=== PATIENT | female | born 1955 | race African-American/Black ===

== ENCOUNTER 2019-12-25 15:49 | Inpatient (IN) | payer OTHER, MEDICAID ==
[~2019-12-25] VITALS: Ht 162.6 cm; Wt 101.9 kg
[2019-12-25 17:10] LABS: MEAN CORPUSCULAR HEMOGLOBIN 24.6 pg (28.0-32.0); MEAN CORPUSCULAR VOLUME 83.8 fL (81.0-99.0); MEAN PLATELET VOLUME 8.5 fl (7.4-10.4); PLATELET 348 x1000/uL (130-400); RED BLOOD CELL COUNT 1.78 mill/uL (4.2-5.4); RED CELL DISTRIBUTION WIDTH 22.1 % (11.6-14.6)
[2019-12-25 17:13] LABS: HEMATOCRIT. 14.9 % (36.0-48.0); HEMOGLOBIN. 4.4 g/dL (12.0-16.0)
[2019-12-25 17:17] LABS: CHLORIDE 119 mEq/L (98-107)
[2019-12-25 17:21] LABS: ETHANOL BLOOD < 10 mg/dL
[2019-12-25 17:25] LABS: CREATINE KINASE 190 IU/L (26-192)
[2019-12-25 18:32] LABS: NUCLEATED RED BLOOD CELLS 2 /100 WBC; PLATELET ESTIMATE NORMAL
[2019-12-25 20:55] LABS: CLARITY URINE CLOUDY (CLEAR); COLOR URINE YELLOW (YELLOW); KETONES URINE NEGATIVE (NEGATIVE); LEUKOCYTE ESTERASE URINE NEGATIVE (NEGATIVE); NITRITE URINE NEGATIVE (NEGATIVE); OCCULT BLOOD URINE 1+ (NEGATIVE); PROTEIN URINE 3+ (NEGATIVE); SPECIFIC GRAVITY URINE 1.014 (1.005-1.030)
[2019-12-25] MEDS ORDERED: SODIUM CHLORIDE 0.9% 1,000 ML IV SCH (21:07)
[2019-12-25 21:09] LABS: *AMPHETAMINES SCREEN URINE NEGATIVE (NEGATIVE); *BARBITURATES SCREEN URINE NEGATIVE (NEGATIVE); *BENZODIAZEPINES SCREEN URINE NEGATIVE (NEGATIVE); *COCAINE SCREEN URINE NEGATIVE (NEGATIVE)
[2019-12-25 21:10] LABS: METHADONE URINE SCREEN NEGATIVE (NEGATIVE); OPIATES URINE SCREEN NEGATIVE (NEGATIVE)
[2019-12-25 21:11] LABS: CANNABINOID URINE SCREEN NEGATIVE (NEGATIVE); PHENCYCLIDINE URINE SCREEN NEGATIVE (NEGATIVE)
[2019-12-25] MEDS ORDERED: IPRATROPIUM/ALBUTEROL 0.5-3(2.5)MG/3ML NEB NEB PRN (21:15)
[2019-12-25] MEDS ORDERED: ACETAMINOPHEN 325MG TABLET PO PRN ×3 (21:15→23:00)
[2019-12-25] MEDS ORDERED: HYDRALAZINE 20MG/ML VIAL IV PRN (21:15)
[2019-12-25] MEDS ORDERED: ONDANSETRON HCL 4MG/2ML INJ IV PRN (21:15)
[2019-12-25] MEDS ORDERED: MEROPENEM 1,000 MG in SODIUM CHLORIDE 0.9% 100 ML IV SCH ×3 (21:30→23:00)
[2019-12-25] MEDS ORDERED: FUROSEMIDE 40MG/4ML VIAL IVP SCH (21:30)
[2019-12-25 21:42] LABS: BG BASE EXCESS -5.8 mmol/L (-2.0-2.0); BG CARBOXYHEMOGLOBIN 0.6 % (0.5-1.5); BG DEOXYHEMOGLOBIN 10.9 % (0.0-5.0); BG FRACTION INSPIRED OXYGEN 21; BG METHEMOGLOBIN 0.3 % (0.0-1.5); BG OXYHEMOGLOBIN 88.2 % (94.0-97.0); BG PCO2 26.7 mmHg (35.0-45.0); BG PH 7.446 (7.350-7.450); BG PO2 62.1 mmHg (75.0-100.0); BG SAMPLE SITE RIGHT RADIAL; BG TOTAL HEMOGLOBIN 4.6 g/dL (12.0-18.0); BG VENT MODE ROOM AIR
[2019-12-26] VITALS (29 sets, daily range): BP systolic 105–191; BP diastolic 40–118
[2019-12-26] MEDS ORDERED: MEROPENEM 1,000 MG in SODIUM CHLORIDE 0.9% 100 ML IV SCH (05:00)
[2019-12-26] MEDS ORDERED: VANCOMYCIN 2,000 MG in DEXT 5% WATER 500 ML IV SCH (09:00)
[2019-12-26] MEDS ORDERED: NEO/3.5O EACHEYE (09:35)
[2019-12-26] MEDS ORDERED: HYDR12.54 MT (09:35)
[2019-12-26] MEDS ORDERED: CARB30DR OP (09:35)
[2019-12-26] MEDS ORDERED: FOLI0.8T27 PO (09:35)
[2019-12-26] MEDS ORDERED: CALC0.253 PO (09:35)
[2019-12-26] MEDS ORDERED: ROSU20TA2 PO (09:35)
[2019-12-26] MEDS ORDERED: HYDROCHLOROTHIAZIDE PO (09:35)
[2019-12-26] MEDS ORDERED: METF-416 PO (09:35)
[2019-12-26] MEDS ORDERED: VERA240C3 PO (09:35)
[2019-12-26] MEDS ORDERED: CLON0.3T PO (09:35)
[2019-12-26] MEDS ORDERED: NYST15PO4 TP (09:35)
[2019-12-26] MEDS ORDERED: LANTUS SUBCUT ×2 (09:35)
[2019-12-26] MEDS ORDERED: VENL150C52 PO (09:35)
[2019-12-26] MEDS ORDERED: ISOS30TA6 PO (09:35)
[2019-12-26] MEDS ORDERED: ASPI-1158 PO (09:35)
[2019-12-26] MEDS ORDERED: GLIP10TA10 PO (09:35)
[2019-12-26] MEDS ORDERED: NASA BOTHNSTRLS (09:35)
[2019-12-26] MEDS ORDERED: DEXTROSE 50% WATER 50ML SYRINGE IV PRN (10:15)
[2019-12-26] MEDS ORDERED: ACETAMINOPHEN 325MG TABLET PO PRN (11:00)
[2019-12-26] MEDS: BLOOD SUGAR DIAGNOSTIC STRIP TEST SCH ×3 (11:01→21:40)
[2019-12-26 11:41] LABS: BASOPHILS % 0.5 % (0.0-2.0); EOSINOPHILS % 0.1 % (0.0-5.0); HEMATOCRIT. 22.5 % (36.0-48.0); LYMPHOCYTES % 7.9 % (20.0-50.0); MEAN CORPUSCULAR HEMOGLOBIN 25.6 pg (28.0-32.0); MEAN CORPUSCULAR VOLUME 82.5 fL (81.0-99.0); MONOCYTES % 9.6 % (2.0-8.0); NEUTROPHILS % 81.9 % (40.0-76.0); PLATELET 294 x1000/uL (130-400); RED BLOOD CELL COUNT 2.72 mill/uL (4.2-5.4)
[2019-12-26 11:44] LABS: INR 1.2; PROTHROMBIN TIME 11.9 sec (9.6-11.0)
[2019-12-26] MEDS: INSULIN LISPRO 100 UNITS/ML SUBCUT SCH ×3 (11:58→21:42)
[2019-12-26] MEDS: MEROPENEM 1000MG in NORMAL SALINE 100ML IV SCH ×2 (12:39→21:40)
[2019-12-26 12:41] LABS: TOTAL IRON BINDING CAPACITY 243 ug/dL (250-450)
[2019-12-26 12:52] LABS: FERRITIN 78 ng/mL (10-291)
[2019-12-26 13:48] LABS: FOLIC ACID (FOLATE) SERUM >20 ng/mL ng/mL (>5.38)
[2019-12-26 13:59] LABS: VITAMIN B12 SERUM 1193 pg/mL (211-911)
[2019-12-26] MEDS: HYDRALAZINE 20MG/ML VIAL IV PRN ×2 (15:43→23:08)
[2019-12-26] MEDS: FERROUS SULFATE 325MG TABLET PO SCH (17:00)
[2019-12-26] MEDS: FUROSEMIDE 40MG/4ML VIAL IVP SCH (17:58)
[2019-12-26] MEDS ORDERED: EPOETIN ALFA 4000UNITS/ML VIAL SUBCUT SCH (21:00)
[2019-12-26] MEDS: CLONIDINE 0.2MG TABLET PO SCH (21:40)
[2019-12-26 21:54] LABS: HEMATOCRIT 24.9 % (36.0-48.0); HEMOGLOBIN 7.8 g/dL (12.0-16.0)
[2019-12-27] VITALS (54 sets, daily range): BP systolic 62–189; BP diastolic 24–112
[2019-12-27] MEDS: HYDRALAZINE 20MG/ML VIAL IV PRN ×2 (05:15→12:05)
[2019-12-27 05:55] LABS: CHLORIDE 122 mEq/L (98-107)
[2019-12-27 05:56] LABS: HEMATOCRIT. 21.5 % (36.0-48.0); MEAN CORPUSCULAR HEMOGLOBIN 26.4 pg (28.0-32.0); MEAN CORPUSCULAR VOLUME 82.3 fL (81.0-99.0); MEAN PLATELET VOLUME 8.8 fl (7.4-10.4); PLATELET 195 x1000/uL (130-400); RED BLOOD CELL COUNT 2.62 mill/uL (4.2-5.4); RED CELL DISTRIBUTION WIDTH 17.9 % (11.6-14.6)
[2019-12-27 06:08] LABS: PHOSPHORUS 4.7 mg/dL (2.5-4.9)
[2019-12-27 06:09] LABS: HAPTOGLOBIN 49 mg/dL (30-200)
[2019-12-27] MEDS: CLONIDINE 0.2MG TABLET PO SCH ×3 (06:35→22:17)
[2019-12-27] MEDS: INSULIN LISPRO 100 UNITS/ML SUBCUT SCH ×4 (06:35→22:31)
[2019-12-27] MEDS: BLOOD SUGAR DIAGNOSTIC STRIP TEST SCH ×4 (06:35→21:00)
[2019-12-27] MEDS: FERROUS SULFATE 325MG TABLET PO SCH ×3 (06:35→17:28)
[2019-12-27 07:05] LABS: HEMOGLOBIN. 6.9 g/dL (12.0-16.0)
[2019-12-27 08:01] LABS: NUCLEATED RED BLOOD CELLS 2 /100 WBC; PLATELET ESTIMATE NORMAL
[2019-12-27] MEDS: MEROPENEM 1000MG in NORMAL SALINE 100ML IV SCH (08:26)
[2019-12-27] MEDS: FUROSEMIDE 40MG/4ML VIAL IVP SCH (08:26)
[2019-12-27] MEDS: NIFEDIPINE XL 60MG TAB PO SCH (09:59)
[2019-12-27] MEDS ORDERED: POTASSIUM CHLORIDE INJ 40 MEQ in DEXT 5% WATER 250 ML IV SCH (10:00)
[2019-12-27] MEDS ORDERED: MAGNESIUM 4 G PREMIX 100 ML IV SCH (10:30)
[2019-12-27] MEDS ORDERED: VANCOMYCIN 1 G PREMIX 200 ML IV SCH (12:00)
[2019-12-27] MEDS: DOCUSATE SODIUM 250MG CAPSULE PO SCH (14:26)
[2019-12-27] MEDS ORDERED: SORBITOL 70% SOLN 30ML PO SCH ×2 (16:00→20:00)
[2019-12-27 16:06] LABS: HEMATOCRIT 27.6 % (36.0-48.0); HEMOGLOBIN 8.9 g/dL (12.0-16.0)
[2019-12-27 18:09] LABS: T4 FREE 1.23 ng/dL (0.76-1.46)
[2019-12-27] MEDS: CEFTRIAXONE 1 G PREMIX 50 ML IV SCH (22:17)
[2019-12-27] MEDS: PANTOPRAZOLE SODIUM 40 MG/VIAL IV SCH (22:17)
[2019-12-27] MEDS: METRONIDAZOLE 500 MG PREMIX 100 ML IV SCH (22:20)
[2019-12-28] VITALS (44 sets, daily range): BP systolic 86–196; BP diastolic 39–129
[2019-12-28 05:26] LABS: HEMATOCRIT. 30.7 % (36.0-48.0); HEMOGLOBIN. 9.7 g/dL (12.0-16.0); MEAN CORPUSCULAR HEMOGLOBIN 26.4 pg (28.0-32.0); MEAN CORPUSCULAR VOLUME 83.3 fL (81.0-99.0); MEAN PLATELET VOLUME 8.9 fl (7.4-10.4); PLATELET 214 x1000/uL (130-400); RED BLOOD CELL COUNT 3.68 mill/uL (4.2-5.4); RED CELL DISTRIBUTION WIDTH 17.4 % (11.6-14.6)
[2019-12-28 05:33] LABS: PARTIAL THROMBOPLASTIN TIME 22.7 sec (23.4-31.0); PROTHROMBIN TIME 10.7 sec (9.6-11.0)
[2019-12-28 05:35] LABS: PHOSPHORUS 3.4 mg/dL (2.5-4.9)
[2019-12-28] MEDS: CLONIDINE 0.2MG TABLET PO SCH ×3 (05:54→22:40)
[2019-12-28] MEDS: BLOOD SUGAR DIAGNOSTIC STRIP TEST SCH ×4 (05:55→20:36)
[2019-12-28] MEDS: INSULIN LISPRO 100 UNITS/ML SUBCUT SCH ×4 (05:55→20:44)
[2019-12-28 06:23] LABS: HEPATITIS B SURFACE ANTIGEN NEGATIVE
[2019-12-28 06:52] LABS: HEPATITIS A AB IGM NEGATIVE (NEGATIVE)
[2019-12-28] MEDS: DOCUSATE SODIUM 250MG CAPSULE PO SCH (08:14)
[2019-12-28] MEDS: PANTOPRAZOLE SODIUM 40 MG/VIAL IV SCH ×2 (08:14→20:44)
[2019-12-28] MEDS: FERROUS SULFATE 325MG TABLET PO SCH ×3 (08:14→17:00)
[2019-12-28] MEDS: NIFEDIPINE XL 60MG TAB PO SCH (08:14)
[2019-12-28] MEDS: METRONIDAZOLE 500 MG PREMIX 100 ML IV SCH ×2 (08:15→21:07)
[2019-12-28] MEDS ORDERED: FUROSEMIDE 20MG/2ML VIAL IVP SCH (09:00)
[2019-12-28 11:01] LABS: NUCLEATED RED BLOOD CELLS 1 /100 WBC
[2019-12-28 11:02] LABS: PLATELET ESTIMATE NORMAL
[2019-12-28] MEDS ORDERED: SIMETHICONE 40 MG/0.6 ML 30ML ONE ×2 (13:55→15:48)
[2019-12-28] MEDS ORDERED: BACTERIOSTATIC SODIUM CHLORIDE 0.9% 30ML VIAL IJ ONE (13:55)
[2019-12-28] MEDS ORDERED: MIDAZOLAM HCL 5 MG/5 ML VIAL ONE (15:48)
[2019-12-28] MEDS ORDERED: FENTANYL CITRATE/PF 50MCG/ML 2ML VIAL ONE (15:48)
[2019-12-28] MEDS ORDERED: MIDAZOLAM HCL 5 MG/5 ML VIAL IV PRN (15:58)
[2019-12-28] MEDS ORDERED: FENTANYL CITRATE/PF 50MCG/ML 2ML VIAL IV PRN (15:59)
[2019-12-28] MEDS: CEFTRIAXONE 1 G PREMIX 50 ML IV SCH (20:43)
[2019-12-28] MEDS: HYDRALAZINE 20MG/ML VIAL IV PRN (21:48)
[2019-12-28] MEDS: DIPHENHYDRAMINE 50MG/ML VIAL IV PRN (23:40)
[2019-12-29] VITALS (14 sets, daily range): BP systolic 120–157; BP diastolic 46–87
[2019-12-29] MEDS: CLONIDINE 0.2MG TABLET PO SCH ×3 (05:23→21:06)
[2019-12-29 07:28] LABS: PHOSPHORUS 3.6 mg/dL (2.5-4.9)
[2019-12-29] MEDS: BLOOD SUGAR DIAGNOSTIC STRIP TEST SCH ×4 (07:55→20:23)
[2019-12-29] MEDS: FERROUS SULFATE 325MG TABLET PO SCH ×3 (08:26→18:18)
[2019-12-29] MEDS: INSULIN LISPRO 100 UNITS/ML SUBCUT SCH ×4 (08:26→20:39)
[2019-12-29] MEDS: NIFEDIPINE XL 60MG TAB PO SCH (09:26)
[2019-12-29] MEDS: DOCUSATE SODIUM 250MG CAPSULE PO SCH (09:26)
[2019-12-29] MEDS: METRONIDAZOLE 500 MG PREMIX 100 ML IV SCH ×2 (10:29→20:59)
[2019-12-29 13:15] LABS: BASOPHILS % 0.7 % (0.0-2.0); EOSINOPHILS % 4.1 % (0.0-5.0); HEMATOCRIT. 30.6 % (36.0-48.0); HEMOGLOBIN. 9.8 g/dL (12.0-16.0); LYMPHOCYTES % 7.9 % (20.0-50.0); MEAN CORPUSCULAR HEMOGLOBIN 26.5 pg (28.0-32.0); MEAN CORPUSCULAR VOLUME 82.8 fL (81.0-99.0); MONOCYTES % 14.3 % (2.0-8.0); PLATELET 196 x1000/uL (130-400); RED CELL DISTRIBUTION WIDTH 17.4 % (11.6-14.6)
[2019-12-29] MEDS: CEFTRIAXONE 1 G PREMIX 50 ML IV SCH (20:08)
[2019-12-29] MEDS ORDERED: HYDROCODONE/ACETAMINOPHEN 5/325MG TABLET PO ONE (22:30)
[2019-12-29] MEDS ORDERED: TRAMADOL 50MG TABLET PO SCH (22:45)
[2019-12-29] MEDS: DIPHENHYDRAMINE 50MG/ML VIAL IV PRN (22:49)
[2019-12-30] VITALS: BP 155/71
[2019-12-30 00:48] VITALS: BP 155/71
== END 2019-12-30 01:00 | disposition short-term general hospital (02) | DRG 871 ==
LOC: ER 15:49 → UNDOADMIN 19:14 → MICUSO 19:14 → 8WST 19:14 → EDBEDREQTM 19:17 → EDBEDREQ 19:17 → CANRESERV 19:52 → ENRESERV 19:52 → 8WST 21:06 → EDBEDREQ 21:21 → 8WST 22:10 → UNDODISIN 22:15 → CANRESERV 12-26 01:21 → ENRESERV 12-26 01:21 → UNDODISIN 12-26 04:46 → ENRESERV 12-26 06:17 → MICUSO 12-26 06:51 → 8WST 12-26 06:51 → ENRESERV 12-26 08:05 → 5EST 12-28 23:07
PROVIDERS: ADMIT Internal Medicine; ATTEND Internal Medicine
PROC: 30233N1 Transfusion of Nonautologous Red Blood Cells into Peripheral Vein, Percutaneous Approach (ICD-10-PCS; 2019-12-25)
PROC: 05H533Z Insertion of Infusion Device into Right Subclavian Vein, Percutaneous Approach (ICD-10-PCS; 2019-12-26)
PROC: B546ZZA Ultrasonography of Right Subclavian Vein, Guidance (ICD-10-PCS; 2019-12-26)
PROC: 0DB68ZX Excision of Stomach, Via Natural or Artificial Opening Endoscopic, Diagnostic (ICD-10-PCS; principal; 2019-12-28)
PROC: 0DJD8ZZ Inspection of Lower Intestinal Tract, Via Natural or Artificial Opening Endoscopic (ICD-10-PCS; 2019-12-28)
DX: A41.9 Sepsis, unspecified organism (principal); G92 Toxic encephalopathy; J96.00 Acute respiratory failure, unspecified whether with hypoxia or hypercapnia; K25.4 Chronic or unspecified gastric ulcer with hemorrhage; K72.00 Acute and subacute hepatic failure without coma; N17.0 Acute kidney failure with tubular necrosis; E44.0 Moderate protein-calorie malnutrition; E87.0 Hyperosmolality and hypernatremia; E87.4 Mixed disorder of acid-base balance; I13.0 Hypertensive heart and chronic kidney disease with heart failure and stage 1 through stage 4 chronic kidney disease, or unspecified chronic kidney disease; I67.82 Cerebral ischemia; N18.9 Chronic kidney disease, unspecified; E11.22 Type 2 diabetes mellitus with diabetic chronic kidney disease; D50.9 Iron deficiency anemia, unspecified; J06.9 Acute upper respiratory infection, unspecified; E86.0 Dehydration; J40 Bronchitis, not specified as acute or chronic; E11.65 Type 2 diabetes mellitus with hyperglycemia; E66.01 Morbid (severe) obesity due to excess calories; Z68.38 Body mass index [BMI] 38.0-38.9, adult; E78.5 Hyperlipidemia, unspecified; E87.6 Hypokalemia; I27.20 Pulmonary hypertension, unspecified; I50.9 Heart failure, unspecified; K26.9 Duodenal ulcer, unspecified as acute or chronic, without hemorrhage or perforation; J34.1 Cyst and mucocele of nose and nasal sinus; K44.9 Diaphragmatic hernia without obstruction or gangrene; I08.1 Rheumatic disorders of both mitral and tricuspid valves; K64.8 Other hemorrhoids; Z79.82 Long term (current) use of aspirin; Z82.49 Family history of ischemic heart disease and other diseases of the circulatory system; Z83.3 Family history of diabetes mellitus; Z88.0 Allergy status to penicillin; Z88.8 Allergy status to other drugs, medicaments and biological substances
CPT/HCPCS: 36415; 36600; 70551; 71045; 76700; 76770; 76937; 80048; 80053; 80076; 80202; 80305; 80307; 80320; 80329; 81003; 82140; 82248; 82270; 82375; 82550; 82607; 82728; 82746; 82805; 82962; 83010; 83036; 83540; 83550; 83615; 83735; 83880; 83935; 84100; 84132; 84439; 84443; 84481; 84484; 85014; 85018; 85025; 85044; 86705; 86709; 86803; 86850; 86900; 86920; 87340; 88305; 88312; 88313; 92610; 93005; 93306; 93970; 97110; 97162; 97166; 97530; 97535; 99285; C1725; C9113; J0360; J0696; J0885; J1200; J1642; J1815; J1940; J2185; J2250; J3010; J3370; J3475; J3480; J3490; J7040; J7060; P9016; G0480